=== PATIENT | female | born 1980 | race American Indian/Alaskan Native ===

== ENCOUNTER 2017-10-18 17:18 | Emergency (ER) | payer SELFPAY ==
[2017-10-18 17:31] VITALS: BP 120/50
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
== END 2017-10-18 17:47 | disposition home or self-care (01) ==
LOC: ED 17:18
DX: M25.561 Pain in right knee (principal); F17.200 Nicotine dependence, unspecified, uncomplicated; V87.7XXA Person injured in collision between other specified motor vehicles (traffic), initial encounter; Y93.89 Activity, other specified; Y99.8 Other external cause status; Y92.410 Unspecified street and highway as the place of occurrence of the external cause
CPT/HCPCS: 99282

== ENCOUNTER 2019-03-25 19:10 | Emergency (ER) | payer SELFPAY ==
[2019-03-25 19:22] VITALS: BP 127/52
== END 2019-03-25 19:16 | disposition left against medical advice (07) ==
LOC: ED 19:10
DX: R05 Cough (principal); R07.89 Other chest pain; Z53.21 Procedure and treatment not carried out due to patient leaving prior to being seen by health care provider

== ENCOUNTER 2019-07-11 08:56 | Emergency (ER) | payer OTHER ==
[2019-07-11 09:07] VITALS: BP 119/72
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
== END 2019-07-11 11:21 | disposition home or self-care (01) ==
LOC: ED 08:56
DX: S46.811A Strain of other muscles, fascia and tendons at shoulder and upper arm level, right arm, initial encounter (principal); M54.2 Cervicalgia; F17.200 Nicotine dependence, unspecified, uncomplicated; V49.59XA Passenger injured in collision with other motor vehicles in traffic accident, initial encounter; Y93.89 Activity, other specified; Y92.89 Other specified places as the place of occurrence of the external cause; Y99.8 Other external cause status
CPT/HCPCS: 99282